=== PATIENT | male | born 1970 | race Caucasian/White ===

== ENCOUNTER 2016-05-14 08:43 | Emergency (ER) | payer OTHER ==
[2016-05-14] MEDS ORDERED: ASPIRIN 81 MG CHEW TAB ONE (09:01)
== END 2016-05-14 13:57 | disposition home or self-care (01) ==
LOC: ER 08:43
DX: R07.2 Precordial pain (principal); Z79.899 Other long term (current) drug therapy; I10 Essential (primary) hypertension; F17.210 Nicotine dependence, cigarettes, uncomplicated
CPT/HCPCS: 36415; 71010; 80053; 82550; 83735; 84484; 85025; 85610; 85730; 93005